=== PATIENT | female | born 1980 | race Caucasian/White ===

== ENCOUNTER 2016-06-19 08:28 | Emergency (ER) | payer BC ==
--- NOTE | 2016-06-19 09:01 | EDM.PDOC ---
ED HPI EYE COMPLAINT - General Chief Complaint: Eye Problems Stated Complaint: PAIN IN THE EYE Time Seen by Provider: 06/19/16 08:50 - History of Present Illness INITIAL COMMENTS - FREE TEXT/NARRATIVE: HISTORY AND PHYSICAL: History of present illness: Patient is a 35-year-old female with no stated medical problems who presents with 3 days of cough nasal and sinus congestion sore throat bodyaches. Her child has similar symptoms and was diagnosed with pinkeye and she noted that she started having redness in her left eye which is now bilateral. She woke this morning with the eye symptoms with crusting and drainage. She states that it hurts to open her eyes and the light also hurts her eyes. Patient's been taking [id number] DayQuil and has not been feeling better. Patient denies and has no abdominal pain nausea vomiting diarrhea chest pain or shortness of breath. The patient did not get her flu shot this year Review of systems: As per history of present illness and below otherwise all systems reviewed and negative. Past medical history: As per history of present illness and as reviewed below otherwise noncontributory. Surgical history: As per history of present illness and as reviewed below otherwise noncontributory. Social history: No reported history of drug or alcohol abuse. Family history: As per history of present illness and as reviewed below otherwise noncontributory. Physical exam: General: Well-developed well-nourished female who is nontoxic and speaking with nasal quality to voice. Her vital signs in triage have been noted by me HEENT: Atraumatic, normocephalic, pupils reactive, sclera are injected bilaterally and the conjunctiva are also injected bilaterally, there is no periorbital swelling or erythema there is no crepitus, EOMs are intact but the patient is photophobic, there is some drainage appreciated which is clear on my evaluation, negative for conjunctival pallor or scleral icterus, mucous membranes moist, throat has bilateral tonsillar erythema without any gross exudates but there is one punctate area on the right tonsil, there is cervical adenopathy without posterior adenopathy or nuchal rigidity, neck supple, nontender, trachea midline. Lungs: Clear to auscultation, breath sounds equal bilaterally, chest nontender. Heart: S1S2, regular, negative for clicks, rubs, or JVD. Abdomen: Soft, nondistended, nontender. Negative for masses or hepatosplenomegaly. NABS Pelvis: Stable nontender. Genitourinary: Deferred. Rectal: Deferred. Extremities: Atraumatic, full range of motion. Neurovascular unremarkable. Neuro: Awake, alert, oriented. Cranial nerves II through XII unremarkable. Cerebellum unremarkable. Motor and sensory unremarkable throughout. Exam nonfocal. Diagnostics: Influenza swab rapid strep visual acuity Per nursing vision in the left eye is 20/20 in the right eye 20/25 Therapeutics: [] Impression: Bilateral conjunctivitis, upper respiratory tract infection/viral illness Definitive disposition and diagnosis as appropriate pending reevaluation and review of above. - Related Data Allergies/ADRs: Allergies No Known Allergies Allergy (Verified 09/16/13 10:35) Home Meds: Ambulatory Orders Medication Instructions Recorded Confirmed . [No Known Home Meds] 06/19/16 06/19/16 Past Medical History - Past Health History Medical/Surgical History: Denies Medical/Surgical History Social & Family History - Tobacco Use Smoking Status *Q: Never Smoker Second Hand Smoke Exposure: No - Caffeine Use Caffeine Use: Reports: None - Recreational Drug Use Recreational Drug Use: No ED ROS GENERAL - Review of Systems Review Of Systems: ROS reveals no pertinent complaints other than HPI. ED EXAM GENERAL W FULL EYE - Physical Exam Exam: See Below (See dictation) Course - Vital Signs Last Recorded V/S: Last Vital Signs Temp 36.3 C 06/19/16 08:42 Pulse 89 06/19/16 08:42 Resp 18 06/19/16 08:42 BP 131/77 06/19/16 08:42 Pulse Ox 96 06/19/16 08:42 - Orders/Labs/Meds Orders: Active Orders 24 hr Category Date Time Status CULTURE STREP A CONFIRMATION [RM] Stat Lab 06/19/16 09:00 Results STREP SCRN A RAPID W CULT CONF [RM] Stat Lab 06/19/16 09:00 Results Departure - Departure Time of Disposition: 09:38 Disposition: Home, Self-Care 01 Condition: good Clinical Impression: Viral illness Conjunctivitis Qualifiers: Conjunctivitis type: acute Acute conjunctivitis type: unspecified Laterality: bilateral Qualified Code(s): H10.33 - Unspecified acute conjunctivitis, bilateral URI (upper respiratory infection) Qualifiers: URI type: unspecified viral URI Qualified Code(s): J06.9 - Acute upper respiratory infection, unspecified; B97.89 - Other viral agents as the cause of diseases classified elsewhere Forms: ED Department Discharge Additional Instructions: The following information is given to patients seen in the emergency department who are being discharged to home. This information is to outline your options for follow-up care. We provide all patients seen in our emergency department with a follow-up referral. The need for follow-up, as well as the timing and circumstances, are variable depending upon the specifics of your emergency department visit. If you don't have a primary care physician on staff, we will provide you with a referral. We always advise you to contact your personal physician following an emergency department visit to inform them of the circumstance of the visit and for follow-up with them and/or the need for any referrals to a consulting specialist. The emergency department will also refer you to a specialist when appropriate. This referral assures that you have the opportunity for followup care with a specialist. All of these measure are taken in an effort to provide you with optimal care, which includes your followup. Under all circumstances we always encourage you to contact your private physician who remains a resource for coordinating your care. When calling for followup care, please make the office aware that this follow-up is from your recent emergency room visit. If for any reason you are refused follow-up, please contact the [facility] emergency department at and ask to speak to the emergency department charge nurse. Primary care- Internal Medicine and Family [address] [address] These use [id number] Claritin/Claritin-D, Tylenol and ibuprofen for fever and bodyaches, cough medications as needed and push fluids. Please use the eyedrops as directed and please followup with your primary care physician the clinic for further care and evaluation. Return to the ER as needed and as discussed. - My Orders Last 24 Hours: My Active Orders 06/19/16 09:00 CULTURE STREP A CONFIRMATION [RM] Stat STREP SCRN A RAPID W CULT CONF [RM] Stat - Assessment/Plan Last 24 Hours: My Active Orders 06/19/16 09:00 CULTURE STREP A CONFIRMATION [RM] Stat STREP SCRN A RAPID W CULT CONF [] Stat
[2016-06-19 09:51] VITALS: BP 109/75
== END 2016-06-19 09:50 | disposition home or self-care (01) ==
LOC: MW.ED 08:28
DX: J06.9 Acute upper respiratory infection, unspecified (principal); H10.33 Unspecified acute conjunctivitis, bilateral
CPT/HCPCS: 87081; 87804; 87880; 99283

== ENCOUNTER → 2016-06-22 | Outpatient (CLI) | payer BC | LOC: MW.CHOBGYN 10:35 | PROVIDERS: ATTEND Nurse Practitioner Women's Health | DX: N89.8 Other specified noninflammatory disorders of vagina (principal); R39.9 Unspecified symptoms and signs involving the genitourinary system | CPT/HCPCS: 81001; 87086; 87480; 87510; 87660 ==

== ENCOUNTER 2016-07-08 17:20 | Emergency (ER) | payer BC ==
[2016-07-08 17:51] VITALS: BP 119/68
--- NOTE | 2016-07-08 18:22 | EDM.PDOC ---
ED HPI GENERAL MEDICAL PROBLEM - General Chief Complaint: ENT Problem Stated Complaint: EAR INFECTION Time Seen by Provider: 07/08/16 18:08 - History of Present Illness INITIAL COMMENTS - FREE TEXT/NARRATIVE: HISTORY AND PHYSICAL: History of present illness: The patient is a 34-year-old female who presents with a two-day history of left ear pain and feeling like it is swollen. She doesn't recall anything getting into her ear and she has no sore throat swollen glands headache runny nose sinus congestion cough vomiting or diarrhea. There's been no drainage from the ear. Review of systems: As per history of present illness and below otherwise all systems reviewed and negative. Past medical history: As per history of present illness and as reviewed below otherwise noncontributory. Surgical history: As per history of present illness and as reviewed below otherwise noncontributory. Social history: No reported history of drug or alcohol abuse. Family history: As per history of present illness and as reviewed below otherwise noncontributory. Physical exam: General: Well-developed well-nourished female who is nontoxic and speaking clearly and easily. Vital signs have been noted by me HEENT: Atraumatic, normocephalic, pupils reactive, negative for conjunctival pallor or scleral icterus, mucous membranes moist, throat clear, neck supple, nontender, trachea midline. No cervical adenopathy or nuchal rigidity. There is tenderness with movement of the left auricle and external canal of the left ear is grossly inflamed with some debris and severe tenderness with the exam. The TM is difficult to see and look somewhat dulled but is not bulging. The right external canal and TM are within normal limits. There is no bilateral mastoid tenderness or redness. Lungs: Clear to auscultation, breath sounds equal bilaterally, chest nontender. Heart: S1S2, regular rate and rhythm no overt murmurs Abdomen: Soft, nondistended, nontender. NABS. Genitourinary: Deferred. Rectal: Deferred. Extremities: Atraumatic, negative for cords or calf pain. Neurovascular unremarkable. Neuro: Awake, alert, oriented. Cranial nerves II through XII unremarkable. Cerebellum unremarkable. Motor and sensory unremarkable throughout. Exam nonfocal. Diagnostics: [] Therapeutics: [] Impression: Acute otalgia left with otitis externa Definitive disposition and diagnosis as appropriate pending reevaluation and review of above. Left Ear Pain Score (Numeric/FACES): 8 - Related Data Allergies Allergy/AdvReac Type Severity Reaction Status Date / Time No Known Allergies Allergy Verified 07/08/16 17:49 Home Meds: Home Meds . [Unable to Verify Home Med List] 07/08/16 [History] Past Medical History - Past Health History Medical/Surgical History: Denies Medical/Surgical History Social & Family History - Tobacco Use Smoking Status *Q: Never Smoker Second Hand Smoke Exposure: No - Caffeine Use Caffeine Use: Reports: None - Recreational Drug Use Recreational Drug Use: No ED ROS GENERAL - Review of Systems Review Of Systems: ROS reveals no pertinent complaints other than HPI. ED EXAM, GENERAL - Physical Exam Exam: See Below (See dictation) Course - Vital Signs Last Recorded V/S: Last Vital Signs Temp 37.2 C 07/08/16 17:49 Pulse 72 07/08/16 17:49 Resp 16 07/08/16 17:49 BP 119/68 07/08/16 17:49 Pulse Ox 98 07/08/16 17:49 Departure - Departure Time of Disposition: 18:19 Disposition: Home, Self-Care 01 Condition: good Clinical Impression: Otitis externa Qualifiers: Otitis externa type: swimmer's ear Laterality: left Chronicity: acute Qualified Code(s): H60.332 - Swimmer's ear, left ear Forms: ED Department Discharge Additional Instructions: The following information is given to patients seen in the emergency department who are being discharged to home. This information is to outline your options for follow-up care. We provide all patients seen in our emergency department with a follow-up referral. The need for follow-up, as well as the timing and circumstances, are variable depending upon the specifics of your emergency department visit. If you don't have a primary care physician on staff, we will provide you with a referral. We always advise you to contact your personal physician following an emergency department visit to inform them of the circumstance of the visit and for follow-up with them and/or the need for any referrals to a consulting specialist. The emergency department will also refer you to a specialist when appropriate. This referral assures that you have the opportunity for followup care with a specialist. All of these measure are taken in an effort to provide you with optimal care, which includes your followup. Under all circumstances we always encourage you to contact your private physician who remains a resource for coordinating your care. When calling for followup care, please make the office aware that this follow-up is from your recent emergency room visit. If for any reason you are refused follow-up, please contact the [facility] emergency department at and ask to speak to the emergency department charge nurse. [facility] Primary care- Internal Medicine and Family [address] [address] These use the eardrops you have been prescribed from [facility], Cortisporin otic, as directed and expect some drainage from the ear. Use [id number] Tylenol/ibuprofen for pain or Tylenol #3 have been prescribed. Please be reevaluated in 5-[address] Salinas and when you were on the plane in the next few days expect pressure and pain in that ear. Please take over-the- counter Benadryl to try to help with this. Return to ER as needed and as discussed.
== END 2016-07-08 18:38 | disposition home or self-care (01) ==
LOC: MW.ED 17:20
DX: H60.332 Swimmer's ear, left ear (principal)
CPT/HCPCS: 99282; 99283